=== PATIENT | female | born 1945 | race Two or more races ===

== ENCOUNTER 2025-04-19 19:36 | Emergency (ER) | payer MEDICAID ==
[~2025-04-19] VITALS: Ht 162.6 cm; Wt 71.0 kg
--- NOTE | 2025-04-19 20:00 | ECG ---
[facility] Test Date: 2025-04-19 Test Time: 19:55:17 Pat Name: SADIE BATRES Department: Room: Gender: F College Specialist: RASHIDA : 1945 Requested By: GENEVIEVE NEVILLE Order Number: [id number] Reading MD: Suleman Monreal Measurements Intervals Ellis Rate: 78 P: 62 WA: 171 QRS: 50 QRSD: 80 T: 63 QT: 396 QTc: 452 Interpretive Statements Sinus rhythm Borderline ST depression, lateral leads Electronically Signed On 04-24-2025 13:28:32 PST by Suleman Monreal Please click the below link to view image of tracing.
[2025-04-19 20:58] LABS: Hematocrit 36.6 % (36.0-46.0); Hemoglobin 12.3 g/dL (12.2-16.2); Mean Corpuscular Hemoglobin 29.5 pg (28.0-32.0); Mean Corpuscular Volume 88.0 fL (80.0-100.0); Nucleated Red Blood Cells % 0.1 %
[2025-04-19 21:07] LABS: Alanine Aminotransferase 15 U/L (7-40); Albumin 4.3 g/dL (3.2-4.8); Alkaline Phosphatase 87 U/L (46-116); Anion Gap 9 (5-15); BUN/Creatinine Ratio 15.0 (10.0-20.0); Bilirubin, Total 0.5 mg/dL (0.2-1.0); Blood Urea Nitrogen 16 mg/dL (9-23); Calcium 9.3 mg/dL (8.7-10.4); Carbon Dioxide 23 mmol/L (20-31); Chloride 103 mmol/L (98-107); Glucose 96 mg/dL (74-106); Potassium 4.4 mmol/L (3.5-5.1); Total Protein 7.4 g/dL (5.7-8.2)
[2025-04-19 21:22] LABS: Lipase 55 U/L (12-53); Sodium 135 mmol/L (136-145)
--- NOTE | 2025-04-19 21:39 | DVH ---
Exam: CT CT AB PEL WO CON-NO ORAL OR IV History: upper abd pain Comparison Study: None TECHNIQUE: Multidetector CT of the abdomen AND PELVIS without IV contrast. Axial, coronal and sagitta l multiplanar reformats were obtained from the axial data set by the technologist. Radiation Dose Information: CT Dose: CTDI volume is 10.99 mGy. Dose-length product is 609.12 mGy*cm FINDINGS: Bibasilar atelectasis/scarring with ground-glass opacity. Mild cardiomegaly. Liver, spleen, gallbladder, pancreas and adrenal glands unremarkable. Mild right hydronephrosis with nonobstructing calculus noted., kidneys, ureters and urinary bladder u nremarkable. Uterus and adnexa are unremarkable. Small hiatal hernia. Mild gastric wall thickening which may be due to inadequate distention. The sma ll bowel loops unremarkable. Motion artifact limits evaluation of the midabdomen. Appendix is not def initely visualized. Moderate to large amount of fecal material within the colon. Sigmoid diverticulos is without diverticulitis. No evidence of intraperitoneal free air or free fluid. Mild dilatation of the infrarenal aorta up to 3 cm. Moderate to heavy atherosclerotic calcification o f the aorta and bilateral iliacs. Small fat containing umbilical hernia with small fat containing bilateral inguinal hernias. Diffuse d emineralization. Multilevel moderate to severe degenerative changes of the lumbar spine. IMPRESSION: Gastric wall thickening which may be due to inadequate distention /mild gastritis. Small hiatal hernia. Appendix is not definitely visualized. Without visualization of the Appendix, can not exclude acute appendicitis. Moderate to large amount of fecal material within the colon. Bibasilar masses/scanning with ground-glass opacity lung bases which may be from mild pulmonary edema . Additional findings as above.
[2025-04-19] MEDS: SODIUM CHLORIDE 0.9% 1,000 ML IV ONE (21:48)
[2025-04-19] MEDS: ONDANSETRON HCL 4 MG/2 ML VIAL IV ONE (21:49)
[2025-04-20 00:31] LABS: Urine Protein, UAD Negative (Negative)
[2025-04-20 01:18] VITALS: O2SAT 94
[2025-04-20 02:16] VITALS: BP 141/84; PULSE 78; RESP 18; TEMP 98.4; O2SAT 94
--- NOTE | 2025-04-20 11:26 | ED.PDOC ---
GI ASSESSMENT HPI Comments 79-year-old female who presents to the ED with a chief complaint of abdominal pain. Patient states she has been having left lower quadrant pain. constant with no associated exacerbating or relieving factors. Patient has associated nausea but otherwise denies any vomiting diarrhea dysuria fever cough chills or any associated symptoms. Patient otherwise denies any other symptoms. Patient in the ED has not noted blood pressure of 226/595 with otherwise stable vitals. Past Medical history: Hypertension Past Surgical history: Denies Medications: Losartan Social history: denies EOTH, denies tobacco use, denies drug use Allergies: Denies HPI: Poor Historian. REVIEW OF SYSTEMS: CONSTITUTIONAL: Denies acute: fever, diaphoresis, chills, generalized weakness. HEAD: Denies acute: headache, photophobia Eyes: Denies acute: Double vision, vision loss, eye pain, eye discharge. EARS: Denies acute: tinnitus, hearing loss, ear discharge, ear pain, THROAT: Denies acute: sore throat, swelling, difficulty swallowing , pain with swallowing, change in voice. NECK: Denies acute: neck pain, neck swelling, stiff neck. HEART: Denies acute : chest pain, palpitations, LUNGS: Denies acute: SOB, wheezing, cough, hemoptysis ABDOMEN: Denies acute: Vomiting, diarrhea, melena , hematemesis, hematochezia SKIN: Denies acute: rash, redness, lesions, itchiness. EXTREMITIES: Denies acute: calf pain, numbness, tingling, weakness, denies pain in extremity. Denies acute: Low back pain. Neuro: Denies acute: focal neurological deficit, motor or sensory focal neurological deficit, tremors, seizure like activity, confusion, dizziness, change in mental status, loss of bowel or bladder function, cauda equina like symptoms. : Denies acute: dysuria, hematuria, flank pain, increase in urinary frequency. PSYCH: Denies acute: hallucination, suicidal ideation, homicidal ideation. FEMALE: Denies acute: abnormal vaginal bleeding, foul odor, unusual discharge. PHYSICAL EXAM: General: ---no-----acute distress, awake and alert. Head: normocephalic, atraumatic. Neck: supple, trachea is midline, no swelling. Throat: Normal phonation. Eyes:, no erythema, no purulent discharge, no proptosis, no icterus. Heart: regular rate, regular rhythm, no significant murmur appreciated. Lungs: no apparent respiratory distress, Able to speak in full sentences. No wheezing, no rhonchi, no crackles. No stridors Clear to auscultation bilaterally. Abdomen: Minimal left lower quadrant tender to palpation, non distended, soft, no guarding, no rebound, + bowel sounds. Neuro: Awake, Alert, oriented to name, self, situation, follows commands GCS=15. Speech is normal. Skin: no petechia, no purpura, no cyanosis, non-pale, not jaundice. Lower extremities: --no - Pitting edema no deformity, no focal swelling, no calf TTP. Makes eye contact. moves all four extremities. Face: no apparent facial droop. Ambulating in the ED independently. ED COURSE: DISCLAIMER: This medical document was created using an electronic medical record system with voice recognition software and computerized dictation system. Although this document has been carefully reviewed, there might still be some phonetic and typographical errors. Occasional wrong-word or "sound-alike" substitutions may have occurred due to the inherent limitations of voice recognition software. These areas are purely typographical due to imperfections of the software programs and do not reflect any compromise in the patient's medical care. Please read the chart carefully and recognize, using context, where these substitutions have occurred. Chief Complaint: Abdominal Pain Time Seen by MD: 21:14 Reviewed Notes: Medications, Allergies Information Source: Patient Mode of Arrival: Ambulatory Brought in by: Friend Past Medical History PAST MEDICAL HISTORY: HTN Was a procedure done? Was a procedure done?: No GI differential Dx Differential Diagnosis: Other (DDX include Diverticulitis, colitis, gastroenteritis, acute abdomen, SBO, enteritis, constipation, volvulus, appendicitis, Gallbladder disease, choledocolithiasis, ascending cholangitis, pancreatitis, intraAbdominal mass/neoplasm, hepatitis, UTI, pylonephritis, kidney stone, aneurysm, dissection, Inflammatory bowel disease, gastroparesis, ischemic bowel,,,,,,Food poisoning, bacterial/parasitic/viral etiology, trauma, diabetes DKA,ovarian torsion, ovarian cyst/mass, tubo-ovarian abscess, ) X-Ray, Labs, Meds, VS Vital Signs Date Time Temp Pulse Resp B/P (MAP) Pulse Ox O2 Delivery O2 Flow Rate FiO2 04/20/25 02:16 98.4 78 18 141/84 (103) 94 98.4 04/20/25 01:18 94 Room Air* 0 21 04/19/25 19:55 78 04/19/25 19:39 97.6 76 18 226/95 99 97.6 Lab Test 04/19/25 23:41 04/19/25 20:37 Range/Units Urine Color Colorless Yellow Urine Clarity Clear Clear Urine pH 6.5 5.0-9.0 Urine Specific [place] 1.004 1.001-1.035 Urine Protein Negative Negative Urine Ketones Negative Negative Urine Blood Negative Negative /uL Urine Nitrite Negative Negative Urine Bilirubin Negative Negative Urine Urobilinogen Normal Negative mg/dL Urine Leukocyte Esterase 2+ Negative /uL Urine RBC None seen 0 - 4 /hpf Urine Microscopic WBC 5 0-5 /HPF Urine Squamous Epithelial Cells Few <5 /hpf Urine Bacteria None seen None Seen /hpf Urine Glucose Normal Normal mg/dL White Blood Count 9.5 4.4-10.8 10^3/uL Red Blood Count 4.16 4.0-5.20 10^6/uL Hemoglobin 12.3 12.2-16.2 g/dL Hematocrit 36.6 36.0-46.0 % Mean Corpuscular Volume 88.0 80.0-100.0 fL Mean Corpuscular Hemoglobin 29.5 28.0-32.0 pg Mean Corpuscular Hemoglobin Concent 33.5 32.0-36.0 g/dL Red Cell Distribution Width 14.0 11.8-14.3 % Platelet Count 267 140-450 10^3/uL Mean Platelet Volume 7.6 6.9-10.8 fL Neutrophils (%) (Auto) 68.1 37.0-80.0 % Lymphocytes (%) (Auto) 22.9 10.0-50.0 % Monocytes (%) (Auto) 6.9 0.0-12.0 % Eosinophils (%) (Auto) 1.7 0.0-7.0 % Basophils (%) (Auto) 0.4 0.0-2.0 % Neutrophils # (Auto) 6.5 1.6-8.6 10 ^3/uL Lymphocytes # (Auto) 2.2 0.4-5.4 10 ^3/uL Monocytes # (Auto) 0.7 0-1.3 10 ^3/uL Eosinophils # (Auto) 0.2 0-0.8 10 ^3/uL Basophils # (Auto) 0 0-0.2 10 ^3/uL Nucleated Red Blood Cells 0.1 % Sodium Level 135 L 136-145 mmol/L Potassium Level 4.4 3.5-5.1 mmol/L Chloride Level 103 98-107 mmol/L Carbon Dioxide Level 23 20-31 mmol/L Anion Gap 9 5-15 Blood Urea Nitrogen 16 9-23 mg/dL Creatinine 1.07 H 0.550-1.02 mg/dL Glomerular Filtration Rate Calc 52 >90 mL/min BUN/Creatinine Ratio 15.0 10.0-20.0 Serum Glucose 96 74-106 mg/dL Lactic Acid Level 1.4 0.4-2.0 mmol/L Calcium Level 9.3 8.7-10.4 mg/dL Total Bilirubin 0.5 0.2-1.0 mg/dL Aspartate Amino Transferase (AST) 21 13-40 U/L Alanine Aminotransferase (ALT) 15 7-40 U/L Alkaline Phosphatase 87 46-116 U/L Troponin I High Sensitivity 21 </=34 ng/L Total Protein 7.4 5.7-8.2 g/dL Albumin 4.3 3.2-4.8 g/dL Lipase 55 H 12-53 U/L [place] [address] Ph: [phone] DIAGNOSTIC IMAGING Diagnostic Imaging Report : [id number] Signed PATIENT: KELY BATRESOACCT: [id number] UNIT: [id number] : 1945 LOC: ER ROOM / BED: / AGE / SEX: 79 / F ADM STATUS: REG ER SERVICE 26 ORDERING PHYSICIAN: ADRIAN CORTEZ DO PROCEDURE(s): ABPL - CT AB PEL WO CON-NO ORAL OR IV REASON: upper abd pain ORDER NUMBER(s): [id number], ACCESSION NUMBER(s): [id number] Exam: CT CT AB PEL WO CON-NO ORAL OR IV History: upper abd pain Comparison Study: None TECHNIQUE: Multidetector CT of the abdomen AND PELVIS without IV contrast. Axial, coronal and sagittal multiplanar reformats were obtained from the axial data set by the technologist. Radiation Dose Information: CT Dose: CTDI volume is 10.99 mGy. Dose-length product is 609.12 mGy*cm FINDINGS: Bibasilar atelectasis/scarring with ground-glass opacity. Mild cardiomegaly. Liver, spleen, gallbladder, pancreas and adrenal glands unremarkable. Mild right hydronephrosis with nonobstructing calculus noted., kidneys, ureters and urinary bladder unremarkable. Uterus and adnexa are unremarkable. Small hiatal hernia. Mild gastric wall thickening which may be due to inadequate distention. The small bowel loops unremarkable. Motion artifact limits evaluation of the midabdomen. Appendix is not definitely visualized. Moderate to large amount of fecal material within the colon. Sigmoid diverticulosis without diverticulitis. No evidence of intraperitoneal free air or free fluid. Mild dilatation of the infrarenal aorta up to 3 cm. Moderate to heavy atherosclerotic calcification of the aorta and bilateral iliacs. Small fat containing umbilical hernia with small fat containing bilateral inguinal hernias. Diffuse demineralization. Multilevel moderate to severe degenerative changes of the lumbar spine. IMPRESSION: Gastric wall thickening which may be due to inadequate distention /mild gastritis. Small hiatal hernia. Appendix is not definitely visualized. Without visualization of the Appendix, can not exclude acute appendicitis. Moderate to large amount of fecal material within the colon. Bibasilar masses/scanning with ground-glass opacity lung bases which may be from mild pulmonary edema. Additional findings as above. ATED BY: ADRI DESAI DO DICTATED DATE/TIME: 04/19/252136 SIGNED BY: ADRI DESAI DO SIGNED DATE/TIME: 04/19/252136 CC: Time of 1ST Reevaluation: 21:45 Reevaluation 1ST: Unchanged Time of 2ND Reevaluation: 00:33 (Still waiting on urine to be collected. Patient has never been provided with a urine cup.) Patient Education/Counseling: Diagnosis, Treatment Family Education/Counseling: No Family Present Comments MDM: patient presented with the above HPI.----abdominal pain--workup was initiated. patient was found with the above mentioned diagnosis. the following medications were ordered: please refer to order lists of meds and tests obtained by myself Dr. Cortez. Patient ED course and VS have been stabilized. Patient has been reassessed in the ED and remained in a stable condition. Pertinent incidental findings were discussed with the patient and/or family. Patient/family voices understanding and is agreeable with plan. Patient has been observed in the ED adequate length of time to insure impr ovement/stability. Escalation of care considered: Consideration of escalation to observation or admission CT scan was obtained. Patient was found with constipation Patient was DISCHARGED home in a stable condition. All the reports of any imaging studies that were ordered by myself were reviewed by myself. SEPSIS Sepsis Screen Date sepsis recognized/suspect: Apr 19, 2025 Time Sepsis recognized/suspect: 1945 Recent Procedure: No On Antibiotic Therapy: No Respiratory Rate >20: No Heart Rate >90: No Temp<36 C (96.8 F) or >38.3 C: No SBP <90 or MAP <65 mmHG: No New Acute Mental Status Change: No Is the patient on CPAP, BIPAP,: No Physician Orders [employer] (04/19/25 ) Ct Ab Pel Wo Con-No Oral Or Iv (04/19/25 20:27) Vital Signs Date Time Temp Pulse Resp B/P (MAP) Pulse Ox O2 Delivery O2 Flow Rate FiO2 04/20/25 02:16 98.4 78 18 141/84 (103) 94 98.4 04/20/25 01:18 94 Room Air* 0 21 04/19/25 19:55 78 04/19/25 19:39 97.6 76 18 226/95 99 97.6 Laboratory Tests Test 04/19/25 20:37 Lactic Acid Level 1.4 mmol/L (0.4-2.0) White Blood Count 9.5 10^3/uL (4.4-10.8) Departure 1 Departure Time of Disposition: 23:25 Impression: Primary Impression: Constipation Disposition: 01 HOME / SELF CARE / HOMELESS Condition: Stable Additional Instructions: Additional instructions: Please read all instructions provided in this packet carefully. You MUST follow-up with your primary care/family doctor in 1 to 2 days. If you are unable to see your primary care/family doctor, please return to our emergency room for re-assessment and re-evaluation in 1 to 2 days. Return to the emergency room here in our facility or to the nearest ER [facility] if your symptoms change or worsen. CONSULTATIONS: you MUST Follow-up for consultation as soon as possible with: --gastroenterology in 1-2 days. Please call for appointment. You MUST call the consultants office yourself to make an appointment. You may need to arrange that through your insurance and/or your primary/family doctor. If you are unable to see the regulatory consultant in 1 to 2 days, you must return to our emergency room (or any other ER of your choice) for re-assessment and re- evaluation. Adequate fluid hydration. Although you have been discharged from the Emergency Department, this does not mean that you have a "clean bill of health". No definitive diagnosis for your symptoms has been made today. It is possible that you are in the process of developing a serious illness. This is why you must return to the ED without fail if any new or worsening symptoms develop. Increase fiber intake. Below is a copy of your radiological report for follow up: [place] [address] Ph: [phone] DIAGNOSTIC IMAGING Diagnostic Imaging Report : [id number] Signed PATIENT: SADIE BATRES ACCT: [id number] UNIT: [id number] : 1945 LOC: ER ROOM / BED: / AGE / SEX: 79 / F ADM STATUS: REG ER SERVICE 26 ORDERING PHYSICIAN: ADRIAN CORTEZ DO PROCEDURE(s): ABPL - CT AB PEL WO CON-NO ORAL OR IV REASON: upper abd pain ORDER NUMBER(s): [id number], ACCESSION NUMBER(s): [id number] Exam: CT CT AB PEL WO CON-NO ORAL OR IV History: upper abd pain Comparison Study: None TECHNIQUE: Multidetector CT of the abdomen AND PELVIS without IV contrast. Axial, coronal and sagittal multiplanar reformats were obtained from the axial data set by the technologist. Radiation Dose Information: CT Dose: CTDI volume is 10.99 mGy. Dose-length product is 609.12 mGy*cm FINDINGS: Bibasilar atelectasis/scarring with ground-glass opacity. Mild cardiomegaly. Liver, spleen, gallbladder, pancreas and adrenal glands unremarkable. Mild right hydronephrosis with nonobstructing calculus noted., kidneys, ureters and urinary bladder unremarkable. Uterus and adnexa are unremarkable. Small hiatal hernia. Mild gastric wall thickening which may be due to inadequate distention. The small bowel loops unremarkable. Motion artifact limits evaluation of the midabdomen. Appendix is not definitely visualized. Moderate to large amount of fecal material within the colon. Sigmoid diverticulosis without diverticulitis. No evidence of intraperitoneal free air or free fluid. Mild dilatation of the infrarenal aorta up to 3 cm. Moderate to heavy atherosclerotic calcification of the aorta and bilateral iliacs. Small fat containing umbilical hernia with small fat containing bilateral inguinal hernias. Diffuse demineralization. Multilevel moderate to severe degenerative changes of the lumbar spine. IMPRESSION: Gastric wall thickening which may be due to inadequate distention /mild gastritis. Small hiatal hernia. Appendix is not definitely visualized. Without visualization of the Appendix, can not exclude acute appendicitis. Moderate to large amount of fecal material within the colon. Bibasilar masses/scanning with ground-glass opacity lung bases which may be from mild pulmonary edema. Additional findings as above. ATED BY: ADRI DESAI DO DICTATED DATE/TIME: 04/19/252136 SIGNED BY: ADRI DESAI DO SIGNED DATE/TIME: 04/19/252136 CC: Discharged With: Self, Relative Critical Care Note Critical Care Time?: No Stability Stability form required: No I personally scribed for ADRIAN CORTEZ DO ([email or web address]) on 04/19/25 at 21:16. Electronically submitted by Marcia MG). ADRIAN CORTEZ DO Apr 19, 2025 21:16
== END 2025-04-20 02:11 | disposition home or self-care (01) ==
LOC: ER 19:36
DX: K59.00 Constipation, unspecified (principal); I10 Essential (primary) hypertension; Z79.899 Other long term (current) drug therapy
CPT/HCPCS: 36415; 74176; 80053; 81001; 83605; 83690; 84484; 85025; 93005; 96361; 96374; 99285; J2405; J7030